=== PATIENT | male | born 2000 | race Two or more races ===

== ENCOUNTER 2022-11-14 21:49 | Emergency (ER) | payer OTHER ==
[~2022-11-14] VITALS: Ht 182.9 cm; Wt 109.0 kg
[2022-11-14 21:58] VITALS: O2SAT 100
[2022-11-14] MEDS ORDERED: SODIUM CHLORIDE 0.9% 1,000 ML IV ONE (22:45)
[2022-11-14] MEDS ORDERED: LORAZEPAM 2MG/ML CPJ IV PRN (22:45)
[2022-11-14] MEDS ORDERED: LEVETIRACETAM 1000MG PREMIX 100 ML IV ONE (22:45)
[2022-11-14 23:34] LABS: BASOPHILS % 0.4 % (0.0-2.0); EOSINOPHILS % 0.1 % (0.0-5.0); HEMATOCRIT. 46.4 % (42.0-52.0); HEMOGLOBIN. 15.8 g/dL (14.0-18.0); LYMPHOCYTES % 18.4 % (20.0-50.0); MEAN CORPUSCULAR HEMOGLOBIN 27.9 pg (28.0-32.0); MEAN CORPUSCULAR HGB CONC 33.9 g/dL (31.0-37.0); MEAN CORPUSCULAR VOLUME 82.2 fL (80.0-94.0); MONOCYTES % 5.6 % (2.0-8.0); NEUTROPHILS % 75.5 % (40.0-76.0); PLATELET 226 x1000/uL (130-400); RED BLOOD CELL COUNT 5.65 mill/uL (4.7-6.1); RED CELL DISTRIBUTION WIDTH 13.8 % (11.6-14.6)
[2022-11-14 23:42] LABS: CHLORIDE 107 mEq/L (98-107); INDEX HEMOLYSI 1 (1-3); INDEX ICTERIC 1 (1-4); INDEX LIPEMIC 1 (1-3); POTASSIUM 3.2 mEq/L (3.5-5.1); SODIUM 138 mEq/L (136-145)
[2022-11-15 00:06] LABS: ALBUMIN 3.8 g/dL (3.4-5.0); ASPARTATE AMINOTRANSFERASE 35 IU/L (15-37); BILIRUBIN TOTAL 0.5 mg/dL (0.1-1.0); CREATINE KINASE 86 IU/L (39-308); GLUCOSE 102 mg/dL (70-105); TROPONIN I HIGH SENSITIVITY 6 ng/L (<78); UREA NITROGEN BLOOD 12 mg/dL (7-21)
[2022-11-15 00:53] LABS: CALCIUM 8.7 mg/dL (8.5-10.1)
[2022-11-15 01:00] LABS: CARBON DIOXIDE 24 mEq/L (21-32); CREATININE 0.8 mg/dL (0.6-1.3); ETHANOL BLOOD < 10 mg/dL (-10); PROTEIN TOTAL 7.5 g/dL (6.0-8.3)
[2022-11-15 01:15] LABS: ALANINE AMINOTRANSFERASE 100 IU/L (13-61)
[2022-11-15] MEDS ORDERED: POTASSIUM CHLORIDE 20MEQ TABLET SR PO ONE (01:15)
[2022-11-15 03:07] LABS: CLARITY URINE CLEAR (CLEAR); COLOR URINE YELLOW (YELLOW); GLUCOSE URINE NEGATIVE (NEGATIVE); KETONES URINE NEGATIVE (NEGATIVE); LEUKOCYTE ESTERASE URINE NEGATIVE (NEGATIVE); NITRITE URINE NEGATIVE (NEGATIVE); OCCULT BLOOD URINE NEGATIVE (NEGATIVE); PH URINE 5.5 (4.5-8.0); PROTEIN URINE TRACE (NEGATIVE); SPECIFIC GRAVITY URINE 1.025 (1.005-1.030)
[2022-11-15 03:15] VITALS: BP 121/73; PULSE 97; RESP 19; TEMP 98.6
[2022-11-15 04:06] LABS: *AMPHETAMINES SCREEN URINE NEGATIVE (NEGATIVE); *BARBITURATES SCREEN URINE NEGATIVE (NEGATIVE); *BENZODIAZEPINES SCREEN URINE NEGATIVE (NEGATIVE); *COCAINE SCREEN URINE NEGATIVE (NEGATIVE); CANNABINOID URINE SCREEN NEGATIVE (NEGATIVE); ECSTASY MDMA SCREEN URINE NEGATIVE (NEGATIVE); METHADONE URINE SCREEN NEGATIVE (NEGATIVE); OPIATES URINE SCREEN NEGATIVE (NEGATIVE); PHENCYCLIDINE URINE SCREEN NEGATIVE (NEGATIVE)
[2022-11-15 07:46] LABS: RBC URINE 0-2 /hpf (0-2); WBC URINE 0-2 /hpf (0-2)
[2022-11-15 07:47] LABS: BACTERIA URINE NONE SEEN; SQUAMOUS EPITHELIAL CELL URINE FEW /lpf (RARE/1+)
== END 2022-11-15 03:22 | disposition home or self-care (01) ==
LOC: ER 21:49 → CANBEDREQ 11-16 23:59
DX: R56.9 Unspecified convulsions (principal); E87.6 Hypokalemia
CPT/HCPCS: 80053; 80320; 82550; 82962; 83735; 85025; 85610; 86850; 86900; 86901; 84484; 36415; 93005; 96365; 99291; 80305; 81003; 70450; J1953; J7030; Z7610 ×2; G0480